=== PATIENT | female | born 1985 | race Caucasian/White ===

== ENCOUNTER 2017-01-01 13:37 | Emergency (ER) | payer MEDICAID ==
[2017-01-01 13:48] VITALS: BP 137/75
[2017-01-01] MEDS ORDERED: Ondansetron ODT TAB* 4 MG PO ONE (14:20)
--- NOTE | 2017-01-01 14:26 | UC ---
Throat Pain/Nasal Omid HPI - HPI Summary HPI Summary: Vomiting and diarrhea 4-5 times per day each since yesterday, also hot flashes, ST, and weakness. Needs note to stay home from work, also is out of zofran. - History of Current Complaint Chief Complaint: UCRespiratory Stated Complaint: THROAT PAIN Time Seen by Provider: 01/01/17 14:00 Hx Obtained From: Patient Hx Last Menstrual Period: does not get - control ?: No Onset/Duration: Gradual Onset, Lasting Days Severity: Moderate Cough: None Associated Signs & Symptoms: Positive: Vomiting. Negative: Sinus Discomfort, Nasal Discharge, Fever - Allergies/Home Medications Allergies/Adverse Reactions: Allergies Allergy/AdvReac Type Severity Reaction Status Date / Time Penicillins Allergy Severe Anaphylatic Verified 01/01/17 13:49 Shock PMH/Surg Hx/FS Hx/Imm Hx Previously Healthy: Yes Other History Of: Negative For: Anticoagulant Therapy - Surgical History Surgical History: Yes Surgery Procedure, Year, and Place: Ectopic 11/2010 - Family History Known Family History: Positive: Other - Migraines - Social History Occupation: Employed Full-time Lives: With Family Alcohol Use: Rare Substance Use Type: Marijuana Substance Use Comment - Amount & Last Used: OCCASIONALLY Smoking Status (MU): Light Every Day Tobacco Smoker Type: Cigarettes Amount Used/How Often: 5 CIG/DAY Length of Time of Smoking/Using Tobacco: 9+ YEARS Have You Smoked in the Last Year: Yes Household Exposure Type: Cigarettes - Immunization History Most Recent Influenza Vaccination: unknown Most Recent Tetanus Shot: unknown Most Recent Pneumonia Vaccination: none...n/a Review of Systems Constitutional: Chills, Fatigue Skin: Negative Eyes: Negative ENT: Sore Throat Respiratory: Negative Cardiovascular: Negative Gastrointestinal: Vomiting, Diarrhea Genitourinary: Negative Motor: Negative Neurovascular: Negative Musculoskeletal: Negative Neurological: Negative Psychological: Negative All Other Systems Reviewed And Are Negative: Yes Physical Exam Triage Information Reviewed: Yes Appearance: No Pain Distress, Obese Vital Signs: Initial Vital Signs Temp 99.0 F 01/01/17 13:43 Pulse 84 01/01/17 13:43 Resp 20 01/01/17 13:43 BP 137/75 01/01/17 13:43 Pulse Ox 100 01/01/17 13:43 Vital Signs Reviewed: Yes Eye Exam: Normal, Other - PERRL Eyes: Positive: Conjunctiva Clear ENT: Positive: Hearing grossly normal, Pharynx normal, Tonsillar swelling Dental Exam: Normal Neck exam: Normal Neck: Positive: Supple, Nontender, No Lymphadenopathy Respiratory Exam: Normal Respiratory: Positive: Chest non-tender, Lungs clear, Normal breath sounds, No respiratory distress, No accessory muscle use Cardiovascular Exam: Normal Cardiovascular: Positive: RRR, No Murmur Abdomen Description: Positive: Soft. Negative: CVA Tenderness (R), CVA Tenderness (L) Musculoskeletal Exam: Normal Neurological Exam: Normal Neurological: Positive: Alert Psychological Exam: Normal Skin Exam: Normal Throat Pain/Nasal Course/Dx - Differential Dx/Diagnosis Provider Diagnoses: acute gastroenteritis. elevated blood pressure due to pain Discharge - Discharge Plan Condition: Stable Disposition: HOME Prescriptions: Ondansetron HCl [Zofran 4 MG TAB] 4 mg PO QID #10 tab Patient Education Materials: Gastroenteritis (ED) Forms: *Work Release Referrals: No Guzman MD [Primary Care Provider] - Additional Instructions: Come back here if you are not feeling much better by .
== END 2017-01-01 14:35 | disposition home or self-care (01) ==
LOC: UCEAST 13:37
DX: K52.9 Noninfective gastroenteritis and colitis, unspecified (principal); R03.0 Elevated blood-pressure reading, without diagnosis of hypertension; F17.210 Nicotine dependence, cigarettes, uncomplicated
CPT/HCPCS: 87651; 99212; A9270-GY; G0463

== ENCOUNTER 2017-04-12 14:32 | Emergency (ER) | payer SELFPAY ==
[2017-04-12 15:01] VITALS: BP 120/58
[2017-04-12] MEDS ORDERED: Ondansetron ODT TAB* 4 MG PO ONE (15:35)
--- NOTE | 2017-04-12 16:35 | UC ---
FLU HPI - HPI Summary HPI Summary: THREE DAYS OF FATIGUE SORE THROAT, N/V, FEVER. FEELING BETTER TODAY THAN YESTERDAY. 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 Hx Last Menstrual Period: 03/29/17 Onset/Duration: Sudden Onset, Lasting Days, Still Present Severity Currently: Mild Severity Initially: Severe Associated Signs & Symptoms: Positive: Fever, Myalgia, Sore Throat, Nasal Congestion, Vomiting Related Hx: Possible Flu/Infectious Exposure - Risk Factors Influenza Risk Factors: Negative - Allergy/Home Medications Allergies/Adverse Reactions: Allergies Allergy/AdvReac Type Severity Reaction Status Date / Time Penicillins Allergy Severe Anaphylatic Verified 04/12/17 14:51 Shock Home Medications: Home Medications Norgestimate-Ethinyl Estradiol [Ortho-Cyclen] 1 tab PO 04/12/17 [History] PMH/Surg Hx/FS Hx/Imm Hx Previously Healthy: Yes Other History Of: Negative For: Anticoagulant Therapy - Surgical History Surgical History: Yes Surgery Procedure, Year, and Place: Ectopic 11/2010 - Family History Known Family History: Positive: Other - Migraines Negative: Respiratory Disease - Social History Occupation: Employed Full-time Lives: With Family Alcohol Use: Rare Substance Use Type: None Substance Use Comment - Amount & Last Used: OCCASIONALLY Smoking Status (MU): Light Every Day Tobacco Smoker Type: Cigarettes Amount Used/How Often: 1-2 cigar/ day Length of Time of Smoking/Using Tobacco: 9+ YEARS Have You Smoked in the Last Year: Yes Household Exposure Type: Cigarettes Cessation Counseling: Patient Advised to Stop - Immunization History Most Recent Influenza Vaccination: 2017 Most Recent Tetanus Shot: unknown Most Recent Pneumonia Vaccination: none...n/a Review of Systems Constitutional: Fever, Fatigue Skin: Negative Eyes: Negative ENT: Sore Throat, Nasal Discharge Respiratory: Cough Cardiovascular: Negative Gastrointestinal: Vomiting, Nausea Genitourinary: Negative Motor: Negative Neurovascular: Negative Musculoskeletal: Negative Neurological: Negative Psychological: Negative Is Patient Immunocompromised?: No All Other Systems Reviewed And Are Negative: Yes Physical Exam Triage Information Reviewed: Yes Appearance: No Pain Distress, Well-Nourished, Ill-Appearing - MILDLY Vital Signs: Initial Vital Signs Temp 99.8 F 04/12/17 14:52 Pulse 84 04/12/17 14:52 Resp 14 04/12/17 14:52 BP 120/58 04/12/17 14:52 Pulse Ox 100 04/12/17 14:52 Vital Signs Reviewed: Yes Eye Exam: Normal ENT: Positive: Hearing grossly normal, Pharynx normal, TMs normal, Tonsillar swelling Dental Exam: Normal Neck exam: Normal Neck: Positive: Supple, Nontender, No Lymphadenopathy Respiratory Exam: Normal Respiratory: Positive: Chest non-tender, Lungs clear, Normal breath sounds, No respiratory distress, No accessory muscle use Cardiovascular Exam: Normal Cardiovascular: Positive: RRR, No Murmur, Pulses Normal, Brisk Capillary Refill Abdominal Exam: Normal Abdomen Description: Positive: Nontender, No Organomegaly, Soft Musculoskeletal Exam: Normal Musculoskeletal: Positive: Strength Intact, ROM Intact Neurological Exam: Normal Psychological Exam: Normal Psychological: Positive: Normal Response To Family Skin Exam: Normal Flu Course/Dx - Differential Dx/Diagnosis Differential Diagnosis/HQI/PQRI: Broncholiolitis, Influenza, Upper Respiratory Infection Provider Diagnoses: VIRAL SYNDROME; TONSILLITIS; GASTROENTERITIS Discharge - Discharge Plan Condition: Stable Disposition: HOME Prescriptions: Ondansetron ODT TAB* [Zofran 4 MG Odt TAB*] 4 mg PO Q8H PRN #12 tab.odt PRN Reason: Vomiting Patient Education Materials: Acute Nausea and Vomiting (ED), Viral Syndrome (ED ) Forms: *Work Release Referrals: No Guzman MD [Primary Care Provider] -
== END 2017-04-12 16:20 | disposition home or self-care (01) ==
LOC: UCEAST 14:32
DX: J03.90 Acute tonsillitis, unspecified (principal); F17.210 Nicotine dependence, cigarettes, uncomplicated; Z88.0 Allergy status to penicillin; B34.9 Viral infection, unspecified; K52.9 Noninfective gastroenteritis and colitis, unspecified
CPT/HCPCS: 81003; 84702; 87502; 87651; 99212; A9270-GY; G0463

== ENCOUNTER 2017-07-15 16:57 | Emergency (ER) | payer MEDICAID ==
[2017-07-15 18:01] VITALS: BP 128/76
[2017-07-15] MEDS ORDERED: Ondansetron ODT TAB* 4 MG PO ONE (18:27)
--- NOTE | 2017-07-15 18:35 | UC ---
Violeta Molina Julia, scribed for Tripp Gross MD on 07/15/17 at 1824 . General HPI - HPI Summary HPI Summary: This patient is a 31 year old F presenting to [facility] with a chief complaint of N/V/D since yesterday at 6:00am. Patient reports persistent vomiting, watery diarrhea 2-3x day, body aches, weakness, and dizziness. - History of Current Complaint Chief Complaint: UCGeneralIllness Stated Complaint: VOMITING,COUGH,FEVER Time Seen by Provider: 07/15/17 18:18 Hx Obtained From: Patient Hx Last Menstrual Period: 06/25/2017 Onset/Duration: Sudden Onset, Lasting Days Pain Location at: generalized body Character: aches - Allergy/Home Medications Allergies/Adverse Reactions: Allergies Allergy/AdvReac Type Severity Reaction Status Date / Time Penicillins Allergy Severe Anaphylatic Verified 04/12/17 14:51 Shock PMH/Surg Hx/FS Hx/Imm Hx Other GI/ History: Ectopic Other History Of: Negative For: Anticoagulant Therapy - Surgical History Surgical History: Yes Surgery Procedure, Year, and Place: Ectopic 11/2010 - Family History Known Family History: Positive: Other - Migraines Negative: Respiratory Disease - Social History Occupation: Employed Full-time - cook Alcohol Use: Rare Substance Use Type: None Substance Use Comment - Amount & Last Used: OCCASIONALLY Smoking Status (MU): Light Every Day Tobacco Smoker Type: Cigarettes Amount Used/How Often: 1-2 cigar/ day Length of Time of Smoking/Using Tobacco: 9+ YEARS Have You Smoked in the Last Year: Yes Household Exposure Type: Cigarettes - Immunization History Most Recent Influenza Vaccination: 2017 Most Recent Tetanus Shot: unknown Most Recent Pneumonia Vaccination: none...n/a Review of Systems Constitutional: Other - body aches, weakness, dizziness Gastrointestinal: Negative, Vomiting, Diarrhea All Other Systems Reviewed And Are Negative: Yes Physical Exam Triage Information Reviewed: Yes Vital Signs: Initial Vital Signs Temp 98.7 F 07/15/17 17:56 Pulse 99 07/15/17 17:56 Resp 18 07/15/17 17:56 BP 128/76 07/15/17 17:56 Pulse Ox 99 07/15/17 17:56 Vital Signs Reviewed: Yes ENT: Positive: Pharynx normal. Negative: Nasal congestion, Nasal drainage Neck: Positive: Nontender Respiratory: Positive: Lungs clear, Normal breath sounds, No respiratory distress Cardiovascular: Positive: RRR, No Murmur Abdomen Description: Positive: Nontender. Negative: Distended Musculoskeletal: Positive: Strength Intact, ROM Intact Neurological: Positive: Alert, Muscle Tone Normal Psychological: Positive: Age Appropriate Behavior Skin Exam: Normal Course/Dx - Course Course Of Treatment: 31 y/o patient presents with presistent n/v/d, weakness, and body aches. - Differential Dx - Multi-Symptom Provider Diagnoses: gastroenteritis Discharge - Discharge Plan Condition: Good Disposition: HOME Prescriptions: Ondansetron TAB* [Zofran 4 MG Tab*] 8 mg PO Q6H PRN #10 tab PRN Reason: Nausea Patient Education Materials: Gastroenteritis (ED) Forms: *Work Release Referrals: No Guzman MD [Primary Care Provider] - 3 Days The documentation as recorded by the Violeta robledo Julia accurately reflects the service I personally performed and the decisions made by Renato adams Walter, MD.
== END 2017-07-15 18:51 | disposition home or self-care (01) ==
LOC: UCEAST 16:57
DX: K52.9 Noninfective gastroenteritis and colitis, unspecified (principal); Z72.0 Tobacco use; Z77.22 Contact with and (suspected) exposure to environmental tobacco smoke (acute) (chronic)
CPT/HCPCS: 99212; A9270-GY; G0463

== ENCOUNTER 2017-08-09 17:58 | Emergency (ER) | payer MEDICAID ==
[2017-08-09] MEDS ORDERED: Morphine INJ* 4 MG/ML 1 ML CARPUJECT IV PRN (18:19)
[2017-08-09] MEDS ORDERED: Metoclopramide IV* 5 MG/ML 2 ML VIAL IV SLOW PU ONE (18:19)
[2017-08-09] MEDS ORDERED: NS 0.9% 1000 ML* 1,000 ML IV ONE (18:20)
[2017-08-09] MEDS ORDERED: Morphine INJ* 2 MG/ML 1 ML CARPUJECT ONE ×2 (18:28)
[2017-08-09 18:33] LABS: ABS Basophils 0.1 10^3/ul (0-0.2); ABS Eosinophils 0.1 10^3/ul (0-0.6); ABS Monocytes 0.8 10^3/ul (0-0.8); ABS Neutrophils 6.4 10^3/ul (1.5-7.7); ABS Nucleated RBC 0 10^3/ul; Eosinophil % 0.8 % (0-6); Hematocrit 38 % (35-47); Hemoglobin 13.1 g/dl (12.0-16.0); Lymphocyte % 28.6 % (25-47); Mean Corpuscular HGB Conc 34 g/dl (31-36); Mean Corpuscular Hemoglobin 31 pg (27-31); Mean Corpuscular Volume 90 fL (80-97); Mean Platelet Volume 9 um3 (7.4-10.4); Nucleated Red Blood Cells % 0; Platelet Count 234 10^3/ul (150-450); Red Blood Count 4.23 10^6/ul (4.0-5.4); Red Cell Distribution Width 13 % (10.5-15); White Blood Count 10.4 10^3/ul (3.5-10.8)
--- NOTE | 2017-08-09 18:40 | ED ---
GI/ HPI - HPI Summary HPI Summary: 31-year-old who presents with pelvic pain and left-sided abdominal pain for the past 2 days. She states this feels similar to when she had an ectopic. She states it it cramp like. She states she has had a positive home although has not seen no doctor about it. She is unsure how weeks since her last period but was sometime in May. She admits to nausea. She denies any fevers. She denies any vaginal bleeding. She denies pain with urination or hematuria. She denies any diarrhea or constipation. She only had surgery for a previous ectopic 5 years ago here by dr johnson. She is A+. - History of Current Complaint Chief Complaint: EDAbdPain Time Seen by Provider: 08/09/17 18:15 Stated Complaint: PELVIC PAIN Hx Last Menstrual Period: 06/25/2017 Pain Intensity: 10 - Allergy/Home Medications Allergies/Adverse Reactions: Allergies Allergy/AdvReac Type Severity Reaction Status Date / Time Penicillins Allergy Severe Anaphylatic Verified 08/09/17 18:25 Shock PMH/Surg Hx/FS Hx/Imm Hx Endocrine/Hematology History: Denies: Hx Anticoagulant Therapy, Hx Diabetes, Hx Thyroid Disease Cardiovascular History: Denies: Hx Hypertension Respiratory History: Denies: Hx Asthma, Hx Chronic Obstructive Pulmonary Disease (COPD) GI History: Denies: Hx Ulcer Neurological History: Reports: Hx Migraine - Suspected Psychiatric History: Denies: Hx Substance Abuse - Cancer History Cancer Type, Location and Year: hx of etopic - Surgical History Surgery Procedure, Year, and Place: Ectopic 11/2010 - Immunization History Date of Tetanus Vaccine: Unknown Infectious Disease History: No Infectious Disease History: Denies: Hx Clostridium Difficile, Hx Hepatitis, Hx Human Immunodeficiency Virus (HIV), Hx of Known/Suspected MRSA, Hx Shingles, Hx Tuberculosis, Hx Known/ Suspected VRE, Hx Known/Suspected VRSA, History Other Infectious Disease, Traveled Outside the [place] in Last 30 Days - Family History Known Family History: Positive: Other - Migraines Negative: Respiratory Disease - Social History Alcohol Use: Rare Substance Use Type: Reports: None Substance Use Comment - Amount & Last Used: OCCASIONALLY Smoking Status (MU): Light Every Day Tobacco Smoker Type: Cigarettes Amount Used/How Often: 1-2 cigar/ day Length of Time of Smoking/Using Tobacco: 9+ YEARS Have You Smoked in the Last Year: Yes Review of Systems Negative: Fever Negative: Chest Pain Negative: Shortness Of Breath Negative: Abdominal Pain All Other Systems Reviewed And Are Negative: Yes Physical Exam Triage Information Reviewed: Yes Vital Signs On Initial Exam: Initial Vitals Temp Pulse Resp BP Pulse Ox 98.7 F 90 22 154/75 99 08/09/17 18:11 08/09/17 18:11 08/09/17 18:11 08/09/17 18:11 08/09/17 18:11 Vital Signs Reviewed: Yes Appearance: Positive: Well-Appearing Skin: Positive: Warm, Dry Head/Face: Positive: Normal Head/Face Inspection Eyes: Positive: Normal, EOMI, FABI, Conjunctiva Clear ENT: Positive: Normal ENT inspection, Pharyngeal erythema, TMs normal Neck: Positive: Supple, Nontender, No Lymphadenopathy Respiratory/Lung Sounds: Positive: Clear to Auscultation, Breath Sounds Present Cardiovascular: Positive: Normal, RRR Abdomen Description: Positive: Soft, Other: - tenderness pelvic and LLQ. Negative: CVA Tenderness (R), CVA Tenderness (L) Bowel Sounds: Positive: Present Musculoskeletal: Positive: Normal Neurological: Positive: Normal Psychiatric: Positive: Normal Diagnostics - Vital Signs Vital Signs Temp Pulse Resp BP Pulse Ox 08/09/17 18:32 15 08/09/17 18:19 103 99 08/09/17 18:11 98.7 F 90 22 154/75 99 - Laboratory Lab Results: Lab Results 08/09/17 Range/Units 18:25 WBC 10.4 (3.5-10.8) 10^3/ul RBC 4.23 (4.0-5.4) 10^6/ul Hgb 13.1 (12.0-16.0) g/dl Hct 38 (35-47) % MCV 90 (80-97) fL MCH 31 (27-31) pg MCHC 34 (31-36) g/dl RDW 13 (10.5-15) % Plt Count 234 (150-450) 10^3/ul MPV 9 (7.4-10.4) um3 Neut % (Auto) 62.2 (38-83) % Lymph % (Auto) 28.6 (25-47) % Evans % (Auto) 7.6 (1-9) % Eos % (Auto) 0.8 (0-6) % Baso % (Auto) 0.8 (0-2) % Absolute Neuts (auto) 6.4 (1.5-7.7) 10^3/ul Absolute Lymphs (auto) 3.0 (1.0-4.8) 10^3/ul Absolute Monos (auto) 0.8 (0-0.8) 10^3/ul Absolute Eos (auto) 0.1 (0-0.6) 10^3/ul Absolute Basos (auto) 0.1 (0-0.2) 10^3/ul Absolute Nucleated RBC 0 10^3/ul Nucleated RBC % 0 Result Diagrams: 08/09/17 18:25 08/09/17 18:25 Lab Statement: Any lab studies that have been ordered have been reviewed, and results considered in the medical decision making process. - Ultrasound No standard instances Ultrasound Interpretation: Positive (See Comments) - IMPRESSION: 1. Intrauterine gestational sac without confirmation of pole. Suggest correlation with serial beta-hCGs and follow-up ultrasonography. 2. Possible dermoid cyst left ovary. Complex cyst left ovary. No evidence of ovarian torsion. 3. Small amount of free fluid in the cul-de-sac. Ultrasound Interpretation Completed By: Radiologist ASHLEY Course/Dx - Course Course Of Treatment: 31-year-old who presents with pelvic pain and left- sided abdominal pain for the past 2 days. She states this feels similar to when she had an ectopic. She states it it cramp like. She states she has had a positive home although has not seen no doctor about it. She is unsure how weeks since her last period but was sometime in May. She admits to nausea. She denies any fevers. She denies any vaginal bleeding. She denies pain with urination or hematuria. She only had surgery for a previous ectopic 5 years ago [address] dr johnson. She is A+. on exam tenderness pelvic and LLQ. wbc normal. hcg 6436. u/s shows intrauterine gestation sace without confirmation of pole. complex left ovarian cyst. discussed results with patient and patient states that this is exact how her ecoptic presented. she had normal u/s without sac and mass near left ovary and that two weeks later started to bleed and was found to be ectopic. spoke with dr thompson can not rule out ectopic but unlikely said needs to follow up toradol saturday for repeat hcg and to return if symptoms get worst. dr murdock states could be ectopic with intrauterine and just follow up with u/s. patient understand and agrees with plan - Diagnoses Differential Diagnoses - Female: Ectopic , Ovarian Cyst, Ovarian Torsion, Other - intrauterine Provider Diagnoses: Intrauterine , Abdominal pain, Left ovarian cyst Discharge - Discharge Plan Condition: Good Disposition: HOME Prescriptions: HYDROcodone/ACETAMIN 5-325 MG* [Gilbert 5-325 TAB*] 1 tab PO Q6H PRN #16 tab MDD 4 PRN Reason: Pain Patient Education Materials: Ovarian Cyst (ED) Referrals: No Guzman MD [Primary Care Provider] - Additional Instructions: Follow up with obgyn on saturday for repeat HCG level Take Tylenol for pain, use narcotic for break through pain Place heat on area Return to ED if anything changes
[2017-08-09 18:49] LABS: EGFR Non-African American 102.3 (>60)
[2017-08-09 18:56] LABS: INR 1.07 (0.77-1.02)
[2017-08-09] MEDS ORDERED: Morphine INJ* 2 MG/ML 1 ML CARPUJECT IV ONE (19:12)
--- NOTE | 2017-08-09 20:12 | RAD ---
INDICATION: . Left-sided pain. History of ectopic COMPARISON: None TECHNIQUE: Transvaginal scans were performed for the purposes of early evaluation. FINDINGS: There is an intrauterine gestational sac. Sac size measurements corresponds to 5 week 6 day gestation. No Pole is confirmed. There is a small amount of free fluid in the cul-de-sac. The ovaries are identified as discrete structures. The right ovary measures 2.3 x 1.6 x 2.5 cm and the left ovary 3.0 x 2.9 x 2.5 cm. There is a nonshadowing echogenic structure in the left adnexa measuring 2.4 cm. This has no intrinsic flow on Doppler interrogation. This could represent a dermoid cyst or be extrinsic to the left ovary There is a complex cyst in the left ovary measuring 2.5 cm. There is flow to each ovary on Doppler interrogation. IMPRESSION: 1. Intrauterine gestational sac without confirmation of pole. Suggest correlation with serial beta-hCGs and follow-up ultrasonography. 2. Possible dermoid cyst left ovary. Complex cyst left ovary. No evidence of ovarian torsion. 3. Small amount of free fluid in the cul-de-sac.
[2017-08-09 21:19] VITALS: BP 125/64
== END 2017-08-09 21:17 | disposition home or self-care (01) ==
LOC: ED 17:58
DX: O34.80 Maternal care for other abnormalities of pelvic organs, unspecified trimester (principal); N83.202 Unspecified ovarian cyst, left side; Z88.0 Allergy status to penicillin; O99.330 Smoking (tobacco) complicating pregnancy, unspecified trimester; F17.210 Nicotine dependence, cigarettes, uncomplicated
CPT/HCPCS: 36415; 76817; 80053; 83690; 84702; 85025; 85610; 85730; 86141; 96360; 96374; 96375; 96376; 99284; J2270; J2765

== ENCOUNTER 2018-06-12 17:35 | Emergency (ER) | payer OTHER ==
[2018-06-12 17:49] VITALS: BP 149/76
--- NOTE | 2018-06-12 18:00 | UC ---
Throat Pain/Nasal Omid HPI - HPI Summary HPI Summary: 2 days of n/v, fever, sore throat, cough, R rib pain and vomiting. no sick contacts. - History of Current Complaint Chief Complaint: UCGeneralIllness Stated Complaint: THROAT PAIN Time Seen by Provider: 06/12/18 17:55 Hx Obtained From: Patient Hx Last Menstrual Period: TODAY ?: No - nexplanon Pain Intensity: 5 Pain Scale Used: 0-10 Numeric - Allergies/Home Medications Allergies/Adverse Reactions: Allergies Allergy/AdvReac Type Severity Reaction Status Date / Time Penicillins Allergy Severe Anaphylatic Verified 08/09/17 18:25 Shock PMH/Surg Hx/FS Hx/Imm Hx Previously Healthy: Yes Other History Of: Negative For: Anticoagulant Therapy - Surgical History Surgical History: Yes Surgery Procedure, Year, and Place: Ectopic 11/2010 - Family History Known Family History: Positive: Other - Migraines Negative: Respiratory Disease - Social History Alcohol Use: Rare Substance Use Type: None Substance Use Comment - Amount & Last Used: OCCASIONALLY Smoking Status (MU): Light Every Day Tobacco Smoker Type: Cigarettes Amount Used/How Often: 1-2 cigar/ day Length of Time of Smoking/Using Tobacco: 9+ YEARS Have You Smoked in the Last Year: Yes Household Exposure Type: Cigarettes - Immunization History Most Recent Influenza Vaccination: 2017 Most Recent Tetanus Shot: unknown Most Recent Pneumonia Vaccination: none...n/a Review of Systems All Other Systems Reviewed And Are Negative: Yes Constitutional: Positive: Fever, Chills, Fatigue Skin: Positive: Negative Eyes: Positive: Negative ENT: Positive: Sore Throat, Nasal Discharge, Sinus Congestion Respiratory: Positive: Cough, Other - R rib pain Gastrointestinal: Positive: Vomiting, Diarrhea, Nausea Genitourinary: Positive: Negative Neurological: Positive: Headache Physical Exam Triage Information Reviewed: Yes Appearance: Well-Appearing Vital Signs: Initial Vital Signs Temp 98.8 F 06/12/18 17:43 Pulse 97 06/12/18 17:43 Resp 16 06/12/18 17:43 BP 149/76 06/12/18 17:43 Pulse Ox 98 06/12/18 17:43 Eyes: Positive: Conjunctiva Clear ENT: Positive: Pharyngeal erythema, TMs normal, Uvula midline. Negative: Sinus tenderness Neck: Positive: Supple, No Lymphadenopathy Respiratory: Positive: No respiratory distress, No accessory muscle use, Rhonchi Cardiovascular Exam: Normal Abdominal Exam: Normal Neurological: Positive: Alert Skin Exam: Normal Throat Pain/Nasal Course/Dx - Course Assessment/Plan: 2 day hx of flu-like symptoms. vitals good. rapid strep neg, flu neg, urine hcg neg. CXR: essentially normal but will await final read. viral etiology. rib pain is likely from muscle strain from coughing. advised to return if she develops worsening symptoms but reassured her this was self- limiting. of note she asked for opiates and i declined. - Differential Dx/Diagnosis Differential Diagnosis/HQI/PQRI: Influenza, Tonsillitis, URI Provider Diagnosis: Flu-like symptoms Discharge - Sign-Out/Discharge Documenting (check all that apply): Patient Departure All imaging exams completed and their final reports reviewed: No Studies - Discharge Plan Condition: Good Disposition: HOME Patient Education Materials: Influenza (ED) Forms: *Work Release Referrals: No Guzman MD [Primary Care Provider] - Additional Instructions: You have a flu like illness but you do not have actual Influenza. Please keep hydrated and REST - Billing Disposition and Condition Condition: GOOD Disposition: Home
== END 2018-06-12 19:20 | disposition home or self-care (01) ==
LOC: UCEAST 17:35
DX: R11.2 Nausea with vomiting, unspecified (principal); R50.9 Fever, unspecified; J02.9 Acute pharyngitis, unspecified; R05 Cough; R07.81 Pleurodynia; F17.210 Nicotine dependence, cigarettes, uncomplicated; Z88.0 Allergy status to penicillin
CPT/HCPCS: 71046; 84702; 87651; 99211; G0463

== ENCOUNTER 2018-08-05 08:58 | Emergency (ER) | payer OTHER ==
--- NOTE | 2018-08-05 10:32 | UC ---
General HPI - HPI Summary HPI Summary: Pleasant 32 yo female c/o ongoing R flank and back pain for the last week. No freq / urg / hematuria. Menses irregular. Has been working out quite a bit over the last 2 weeks, more than usual, not sure if she pulled a muscle. No fever / chills. No abd pain. No sob /cp / palpitations. Does not think she is diabetic, + fam hx dm. No melena / brbpr. Reported to RN at triage sometimes dizzy. - History of Current Complaint Chief Complaint: UCBackPain Stated Complaint: POSS KIDNEY PAIN Time Seen by Provider: 08/05/18 10:30 Hx Obtained From: Patient Hx Last Menstrual Period: 08/05/18 Pain Intensity: 10 - Allergy/Home Medications Allergies/Adverse Reactions: Allergies Allergy/AdvReac Type Severity Reaction Status Date / Time Penicillins Allergy Severe Anaphylatic Verified 08/05/18 09:25 Shock Home Medications: Home Medications Cyclobenzaprine (NF) [Cyclobenzaprine 5 MG (NF)] 2 tab PO Q4HR PRN 08/05/18 [ History Confirmed 08/05/18] Implanon 1 unit SUBCUT ONCE 08/05/18 [History Confirmed 08/05/18] Naproxen Sodium [Aleve] 880 mg PO ONCE PRN 08/05/18 [History Confirmed 08/05/18] PMH/Surg Hx/FS Hx/Imm Hx Previously Healthy: Yes Other History Of: Negative For: Anticoagulant Therapy - Surgical History Surgical History: Yes Surgery Procedure, Year, and Place: Ectopic 11/2010 - Family History Known Family History: Positive: Other - Migraines Negative: Respiratory Disease - Social History Alcohol Use: Rare Substance Use Type: Marijuana Substance Use Comment - Amount & Last Used: OCCASIONALLY Smoking Status (MU): Former Smoker Type: Cigarettes Amount Used/How Often: 1-2 cigar/ day Length of Time of Smoking/Using Tobacco: 9+ YEARS Have You Smoked in the Last Year: Yes Household Exposure Type: Cigarettes - Immunization History Most Recent Influenza Vaccination: 2017 Most Recent Tetanus Shot: unknown Most Recent Pneumonia Vaccination: none...n/a Review of Systems All Other Systems Reviewed And Are Negative: Yes Constitutional: Positive: Negative Skin: Positive: Negative Eyes: Positive: Negative ENT: Positive: Negative Respiratory: Positive: Negative Cardiovascular: Positive: Negative Gastrointestinal: Positive: Other - see hpi Genitourinary: Positive: Other - see hpi Motor: Positive: Negative - see hpi Neurovascular: Positive: Negative Musculoskeletal: Positive: Negative Neurological: Positive: Negative Psychological: Positive: Negative Is Patient Immunocompromised?: No Physical Exam Triage Information Reviewed: Yes Appearance: Well-Appearing, Well-Nourished Vital Signs: Initial Vital Signs Temp 98.1 F 08/05/18 09:19 Pulse 81 08/05/18 09:19 Resp 18 08/05/18 09:19 BP 127/64 08/05/18 09:19 Pulse Ox 100 08/05/18 09:19 Vital Signs Reviewed: Yes Eye Exam: Normal ENT Exam: Normal Neck exam: Normal Respiratory Exam: Normal Respiratory: Positive: Chest non-tender, Lungs clear, Normal breath sounds, No respiratory distress, No accessory muscle use Cardiovascular Exam: Normal Cardiovascular: Positive: RRR, No Murmur, Pulses Normal, Brisk Capillary Refill Abdominal Exam: Other - soft, nondistended no ant abd tenderness appreciated to examination Musculoskeletal Exam: Other - Tender R lateral back, upper back, but pt reports that the pain has been lower - mid back. Musculoskeletal: Positive: Strength Intact Neurological Exam: Normal - grossly nonfocal Psychological Exam: Normal Skin Exam: Normal Course/Dx - Course Course Of Treatment: Reviewed ct report with pt. Reviewed urine dip. Cx sent. She is aware of the need to f/u PCP. She is unable to stay for further w/u, needs to go pick up truck driver her daughter from school. She will f/u pcp. Does want blood work, requests additional hiv testing. Questions as posed answered to the best of my ability. Aware to go to the ED for worse or new problems. - Diagnoses Provider Diagnosis: Flank pain, Hematuria, Hepatomegaly Discharge - Sign-Out/Discharge Documenting (check all that apply): Patient Departure All imaging exams completed and their final reports reviewed: Yes - Discharge Plan Condition: Stable Disposition: HOME Prescriptions: DOXYcycline CAP(*) [DOXYcycline 100MG CAP(*)] 100 mg PO BID #14 cap metroNIDAZOLE VAGINAL 0.75%* 1 applic VAGINAL BEDTIME 7 Days #1 tube Patient Education Materials: Hematuria (ED), Flank Pain (ED) Referrals: No Guzman MD [Primary Care Provider] - Additional Instructions: Drink plenty of water. Follow up with Dr. Santana within 1 week. Go to the Emergency Department for any worse or new problems. Urine culture has been sent to the lab. Your liver is enlarged. Blood work has been sent. - Billing Disposition and Condition Condition: STABLE Disposition: Home
[2018-08-05 11:33] VITALS: BP 133/59
[2018-08-05 16:09] LABS: ABS Basophils 0 10^3/ul (0-0.2); ABS Eosinophils 0.1 10^3/ul (0-0.6); ABS Lymphocytes 2.1 10^3/ul (1.0-4.8); ABS Monocytes 0.6 10^3/ul (0-0.8); ABS Neutrophils 4.5 10^3/ul (1.5-7.7); ABS Nucleated RBC 0 10^3/ul; Eosinophil % 0.9 %; Hematocrit 40 % (35-47); Hemoglobin 13.4 g/dl (12.0-16.0); Lymphocyte % 29.4 %; Mean Corpuscular HGB Conc 33 g/dl (31-36); Mean Corpuscular Hemoglobin 30 pg (27-31); Mean Corpuscular Volume 90 fL (80-97); Mean Platelet Volume 9.6 fL (7.4-10.4); Nucleated Red Blood Cells % 0.1; Platelet Count 244 10^3/ul (150-450); Red Blood Count 4.46 10^6/ul (4.00-5.40); Red Cell Distribution Width 13 % (10.5-15); White Blood Count 7.3 10^3/ul (3.5-10.8)
[2018-08-05 16:50] LABS: Albumin 4.2 g/dL (3.2-5.2); Calcium 9.4 mg/dL (8.6-10.3); Potassium 4.3 mmol/L (3.5-5.0); Total Bilirubin 0.5 mg/dL (0.2-1.0)
[2018-08-05 16:56] LABS: Albumin/Globulin Ratio 1.3 (1-3); BUN/Creatinine Ratio 18.8 (8-20); EGFR African American 120.9 (>60); EGFR Non-African American 99.9 (>60); Globulin 3.3 g/dL (2-4); Total Protein 7.5 g/dL (6.4-8.9)
[2018-08-06 19:35] LABS: Hepatitis B Surface Antigen Nonreactive (Nonreactive)
[2018-08-06 19:58] LABS: Hepatitis C Antibody Nonreactive (Nonreactive)
[2018-08-07 14:35] LABS: Hepatitis B Surface AB Not Immune (Immune)
== END 2018-08-05 12:10 | disposition home or self-care (01) ==
LOC: UCEAST 08:58
DX: R10.9 Unspecified abdominal pain (principal); R31.9 Hematuria, unspecified; R16.0 Hepatomegaly, not elsewhere classified; Z87.891 Personal history of nicotine dependence
CPT/HCPCS: 36415; 74176; 80053; 81003; 84702; 85025; 86703; 86706; 86708; 86803; 87086; 87340; 99212; G0463

== ENCOUNTER 2019-06-09 14:16 | Emergency (ER) | payer OTHER ==
--- OUTSIDE RECORDS SUMMARY | 2019-06-09 14:23 | XMS REPORT | Summary of Care ---
:1985 Author Organization [facility] Address [address] [place] [address] Care Team Providers Name Role Phone Unavailable Primary Care Provider Unavailable Reason for Visit Reason Comments Establish Care establish care Flank Pain both sides painful, mostly left, cant sit, always thirsty, afebrile Encounter Details Date Type Department Care Team Description 04/21/2019 Office Visit [facility] Danielito Kendrick, Left-sided thoracic back pain, unspecified chronicity (Primary Dx); Practice [address] [facility] Pain of left scapula; [address] [place] [address] Polyuria; [place] [address] Marijuana user; [phone] Malaise and fatigue Allergies Active Allergy Reactions Severity Noted Date Comments Penicillin G Potassium GI Reaction 07/17/2007 Rash Penicillins Anaphylaxis High 06/26/2012 documented as of this encounter (statuses as of 04/21/2019) Medications Medication Sig Dispensed Refills Start Date End Date Status Norgestimate-Ethiny Take 1 Tab 28 Tab 5 08/29/2012 Discontinued l Estradiol by mouth 9 (ORTHO-CYCLEN, 28,) DAILY. 0.25-35 MG-MCG Oral TabIndications: Other general counseling and advice for contraceptive management Omeprazole delayed Take 20 mg 30 Cap 0 08/29/2012 Discontinued rel cap 20 MG Oral by mouth 9 (Therapy CAPSULE DELAYED DAILY. Completed) RELEASE documented as of this encounter (statuses as of 04/21/2019) Active Problems Problem Noted Date Tobacco user 08/29/2012 Obesity documented as of this encounter (statuses as of 04/21/2019) Immunizations Name Administration Dates Next Due Tuberculin Skin Test 09/24/2006 documented as of this encounter Social History Tobacco Use Types Packs/Day Years Used Date Former Smoker 0 Smokeless Tobacco: Never Used Alcohol Use Drinks/Week oz/Week Comments No Sex Assigned at Date Recorded Not on file Job Start Date Occupation Industry Not on file Not on file Not on file Travel History Travel Start Travel End No recent travel history available. documented as of this encounter Last Filed Vital Signs Vital Sign Reading Time Taken Comments Blood Pressure 144/72 04/21/2019 2:36 PM EDT Pulse 102 04/21/2019 2:36 PM EDT Temperature 36.4 04/21/2019 2:36 PM EDT C (97.6 F) Respiratory Rate 20 04/21/2019 2:36 PM EDT Oxygen Saturation 99% 04/21/2019 2:36 PM EDT Inhaled Oxygen Concentration - - Weight 114.1 kg (251 lb 8 oz) 04/21/2019 2:36 PM EDT Height 170.2 cm (5' 7") 04/21/2019 2:36 PM EDT Body Mass Index 39.39 04/21/2019 2:36 PM EDT documented in this encounter Progress Notes Danielito Kendrick, DO - 04/21/2019 2:20 PM EDT PATIENT: Amanda Moulton : 1985 DATE OF SERVICE: 04/21/2019 CHIEF COMPLAINT: Chief Complaint Patient presents with Establish Care establish care Flank Pain both sides painful, mostly left, cant sit, always thirsty, afebrile Subjective HISTORY OF PRESENT ILLNESS: Amanda Moulton is a 33-y.o. female. HPI Did no show for new pcp appointment and will re establish with Dr Albert Monet concerns for me today 2 months of left thoracic and left scapula pain: No triggers or falls All the time When busy at work forgets Otherwise keeps bothering her No bowel or urine incontinence No leg or arm weakness No fevers Also complains of polyuria for few months Has diabetes in family No dysuria Fingerstick today: 101 Past Medical History: Diagnosis Date Ectopic Obesity PPD+ BCG Tobacco user Family History Problem Relation Age of Onset Breast Cancer Unknown aunt No current outpatient medications on file. No current facility-administered medications for this visit. Allergies Allergen Reactions Penicillins Anaphylaxis Penicillin [Penicillin G Potassium] GI Reaction Rash Social History Socioeconomic History Marital status: Single Spouse name: Not on file Number of children: Not on file Years of education: Not on file Highest education level: Not on file Occupational History Not on file Social Needs Financial resource strain: Not on file Food insecurity: Worry: Not on file Inability: Not on file Transportation needs: Medical: Not on file Non-medical: Not on file Tobacco Use Smoking status: Former Smoker Packs/day: 0.00 Smokeless tobacco: Never Used Substance and Sexual Activity Alcohol use: No Drug use: Yes Types: Marijuana Sexual activity: Not on file Lifestyle Physical activity: Days per week: Not on file Minutes per session: Not on file Stress: Not on file Relationships Social connections: Talks on phone: Not on file Gets together: Not on file Attends yazidism service: Not on file Active member of club or organization: Not on file Attends meetings of clubs or organizations: Not on file Relationship status: Not on file Intimate partner violence: Fear of current or ex partner: Not on file Emotionally abused: Not on file Physically abused: Not on file Forced sexual activity: Not on file Other Topics Concern Not on file Social History Narrative Not on file Over the last 2 weeks, have you been feeling down, depressed, anxious, or hopeless?: 0 Over the past 2 weeks, have you felt little interest or pleasure in doing things ?: 0 REVIEW OF SYSTEMS: Review of Systems Constitutional: Negative for fever. Cardiovascular: Negative for chest pain. Gastrointestinal: Negative for abdominal pain. Neurological: Negative for dizziness. Objective PHYSICAL EXAM: VITALS: BP 144/72 (BP Location: Left arm, Patient Position: Sitting) | Pulse 102 | Temp 97.6 F (36.4 C) (Tympanic) | Resp 20 | Ht 5' 7" (1.702 m) | Wt 251 lb 8 oz (114.1 kg) | SpO2 99% | BMI 39.39 kg/m Body mass index is 39.39 kg/m. Physical Exam Constitutional: Appearance: She is obese. She is not toxic-appearing. Cardiovascular: Rate and Rhythm: Normal rate and regular rhythm. Pulmonary: Effort: Pulmonary effort is normal. Breath sounds: Normal breath sounds. Musculoskeletal: Comments: No thoracic vertebral tenderness Scapular area soft tissue tenderness Neurological: Mental Status: She is alert. ASSESSMENT / IMPRESSION: ICD-9-CM ICD-10-CM 1. Left-sided thoracic back pain, unspecified chronicity 724.1 M54.6 XR THORACIC SPINE 3 VIEWS (STANDARD) 2. Pain of left scapula 733.90 M89.8X1 XR SCAPULA COMPLETE LEFT 3. Polyuria 788.42 R35.8 GLYCOHEMOGLOBIN A1C COMPREHENSIVE METABOLIC PANEL URINALYSIS (LAB) WITH REFLEX CULTURE 4. Marijuana user 305.20 F12.90 5. Malaise and fatigue 780.79 R53.81 CBC NO DIFFERENTIAL R53.83 THYROID STIMULATING HORMONE VITAMIN D 25 HYDROXY (LEON) VITAMIN B12 / FOLATE Plan Xray thoracic spine and scapula as pain for 2 months and not improving Polyuria: finger stick glucose is ok. Check UA and a1c Author: Danielito Kendrick DO 04/21/2019 15:03 documented in this encounter Plan of Treatment Date Type Specialty Care Team Description 04/21/2019 Ancillary Procedure Radiology Pain of left scapula 04/21/2019 Ancillary Procedure Radiology Left-sided thoracic back pain, unspecified chronicity Name Type Priority Associated Diagnoses Order Schedule XR THORACIC SPINE 3 VIEWS Imaging Routine Left-Sided Thoracic Expected: (STANDARD) Back Pain, Unspecified 04/21/2019, Chronicity Expires: 04/20/2020 XR SCAPULA COMPLETE LEFT Imaging Routine Pain Of Left Scapula Expected: 04/21/2019, Expires: 04/20/2020 GLYCOHEMOGLOBIN A1C Lab Routine Polyuria Expected: 04/21/2019 (Approximate), Expires: 04/21/2020 COMPREHENSIVE METABOLIC Lab Routine Polyuria Expected: PANEL 04/21/2019 (Approximate), Expires: 04/21/2020 CBC NO DIFFERENTIAL Lab Routine Malaise and fatigue Expected: 04/21/2019 (Approximate), Expires: 04/21/2020 THYROID STIMULATING HORMONE Lab Routine Malaise and fatigue Expected: 04/21/2019 (Approximate), Expires: 04/21/2020 VITAMIN D 25 HYDROXY Lab Routine Malaise and fatigue Expected: (LEON) 04/21/2019 (Approximate), Expires: 04/21/2020 VITAMIN B12 / FOLATE Lab Routine Malaise and fatigue Expected: 04/21/2019 (Approximate), Expires: 04/21/2020 URINALYSIS (LAB) WITH Lab Routine Polyuria Expected: REFLEX CULTURE 04/21/2019 (Approximate), Expires: 10/18/2019 Health Maintenance Due Date Last Done Comments HIV SCREENING 12/19/2002 PAP SMEAR 06/26/2015 06/26/2012 INFLUENZA VACCINE (#1) 2019 DEPRESSION SCREENING 04/21/2020 04/21/2019 HPV IMMUNIZATION SERIES Aged Out No longer eligible based on patient's age to complete this topic MENINGOCOCCAL VACCINE IMM Aged Out No longer eligible based on patient's age to complete this topic PNEUMOCOCCAL 0-64 YRS Aged Out No longer eligible based on patient's age to complete this topic documented as of this encounter Results Not on filedocumented in this encounter Visit Diagnoses Diagnosis Left-sided thoracic back pain, unspecified chronicity - Primary Pain of left scapula Disorder of bone and cartilage, unspecified Polyuria Marijuana user Malaise and fatigue Other malaise and fatigue documented in this encounter
[2019-06-09 14:35] VITALS: BP 110/69
--- NOTE | 2019-06-09 14:57 | UC ---
UC General HPI - HPI Summary HPI Summary: Pleasant 33 yo female c/o L pelvic pain since yesterday. Pain is constant, but worse this afternoon. No bleeding. Specifically denies cramping. Nonpositional. LMP 04/27/19, seen yesterday by ObGyn [employer], plans to see MD this Saturday (today is Saturday). No fever / chills. No urinary sx, including no dysuria / hematuria. No back pain, but pain radiates to side. PMH sign for several pregnancies, including 1 full term 6 yrs ago, and several missed ab, termination, and possible ectopic in 2010. + ongoing n/v, thinks related. - History of Current Complaint Chief Complaint: UCAbdominalPain Stated Complaint: AND CRAMPING Time Seen by Provider: 06/09/19 14:57 Hx Obtained From: Patient Hx Last Menstrual Period: 08/05/18 Pain Intensity: 8 - Allergy/Home Medications Allergies/Adverse Reactions: Allergies Allergy/AdvReac Type Severity Reaction Status Date / Time Penicillins Allergy Severe Anaphylatic Verified 08/05/18 09:25 Shock PMH/Surg Hx/FS Hx/Imm Hx Previously Healthy: Yes - see hpi Other History Of: Negative For: Anticoagulant Therapy - Surgical History Surgical History: Yes Surgery Procedure, Year, and Place: Ectopic 11/2010 - Family History Known Family History: Positive: Other - Migraines Negative: Respiratory Disease - Social History Alcohol Use: Rare Substance Use Type: Marijuana Substance Use Comment - Amount & Last Used: OCCASIONALLY Smoking Status (MU): Former Smoker Type: Cigarettes Amount Used/How Often: 1-2 cigar/ day Length of Time of Smoking/Using Tobacco: 9+ YEARS Have You Smoked in the Last Year: Yes Household Exposure Type: Cigarettes - Immunization History Most Recent Influenza Vaccination: 2017 Most Recent Tetanus Shot: unknown Most Recent Pneumonia Vaccination: none...n/a Review of Systems All Other Systems Reviewed And Are Negative: Yes Constitutional: Positive: Negative Skin: Positive: Negative Eyes: Positive: Negative ENT: Positive: Negative Respiratory: Positive: Negative Cardiovascular: Positive: Negative Gastrointestinal: Positive: Vomiting, Nausea, Other - see hpi Genitourinary: Positive: Other - see hpi Motor: Positive: Negative Neurovascular: Positive: Negative Musculoskeletal: Positive: Negative Neurological: Positive: Negative Psychological: Positive: Negative Is Patient Immunocompromised?: No Physical Exam Triage Information Reviewed: Yes Appearance: Well-Nourished - sitting up, conversing easily. Looks a little uncomfortable but NAD. Vital Signs: Initial Vital Signs Temp 98.7 F 06/09/19 14:30 Pulse 87 06/09/19 14:30 Resp 18 06/09/19 14:30 BP 110/69 06/09/19 14:30 Pulse Ox 100 06/09/19 14:30 Vital Signs Reviewed: Yes Eye Exam: Normal ENT Exam: Normal - mm are moist. Facial expressions grossly symmetric. Neck exam: Normal Neck: Positive: Supple Respiratory Exam: Normal Respiratory: Positive: Chest non-tender, Lungs clear, Normal breath sounds, No respiratory distress, No accessory muscle use Cardiovascular Exam: Normal Cardiovascular: Positive: RRR, Pulses Normal, Brisk Capillary Refill Abdominal Exam: Other - Abd soft, without dwight hsm. No cvat. + L pelvic tenderness to pressure. + local guarding, no rebound. + bs. Musculoskeletal Exam: Normal - gait steady Neurological Exam: Normal - grossly nonfocal Psychological Exam: Normal - nad Skin Exam: Normal - nondiaphoretic. No visible or reported rash. Course/Dx - Course Course Of Treatment: I highly encouraged pt to go the the ED. She expresses understanding, and carefully considered, but reports that she has no one to bulk picker her 6 yr old child and care for her this afternoon / evening. Reviewed blood work in [employer] from yesterday, including HCG > 34k. U/s TV noted, see [facility]. Early intrauterine preg 6w0d + hb. R cyst c/w CL cyst. However, no issues noted on report re L pelvis. Reviewed urine dip, cx sent. Ms. Moulton is not able to stay past 5:15 for further w/u nor will she go to the ED (L pelvic pain etiology unclear, needs further w/u). She will consider going to the ED in the morning, caio if no better. Advised to call 911 if problems in the meantime. She keep her doctor posted as well. I called Dr. Souza 3:15, prior to results, he too recommended ED, which was relayed to Ms. Moulton. Ms. Moulton was given the opportunity to ask several insightful questions, to which I answered to the best of my ability. - Diagnoses Provider Diagnosis: Pelvic pain, , Nausea and vomiting during Discharge ED - Sign-Out/Discharge Documenting (check all that apply): Patient Departure All imaging exams completed and their final reports reviewed: Yes - Discharge Plan Condition: Guarded Disposition: HOME Patient Education Materials: Nausea and Vomiting in (ED), ( ED), Pelvic Pain in Women (ED) Referrals: Tacos Souza MD [Medical Doctor] - No Guzman MD [Primary Care Provider] - Additional Instructions: I recommend that you go to the Emergency Department because your pain is significant, and you are very nauseas. There is 1+ blood in your urine dip. This must be followed by your doctor (or emergency department). You have a urine culture in the lab. Please call your doctor tomorrow to arrange follow up as soon as possible. - Billing Disposition and Condition Condition: GUARDED Disposition: Home
== END 2019-06-09 16:45 | disposition home or self-care (01) ==
LOC: UCEAST 14:16
DX: O21.8 Other vomiting complicating pregnancy (principal); O99.89 Other specified diseases and conditions complicating pregnancy, childbirth and the puerperium; R10.2 Pelvic and perineal pain; Z88.0 Allergy status to penicillin; Z87.891 Personal history of nicotine dependence; Z3A.01 Less than 8 weeks gestation of pregnancy
CPT/HCPCS: 76817; 81003; 87086; 99212; G0463

== ENCOUNTER 2019-06-12 10:02 | Emergency (ER) | payer OTHER ==
--- NOTE | 2019-06-12 10:19 | ED ---
- HPI Summary HPI Summary: This patient is a 33 year old female presenting to [facility] with a chief complaint of left flank/LLQ pain in since 3 days ago. She went to the OBGYN office who did not have ultrasound available so she came here. She is approximately 7 weeks and states last time she felt a pain like this she had an ectopic 8 years ago. She states the pain radiates to her back and shoulder. She reports hematuria. The patient reports a Hx of kidney stones and states it did not feel like this. She rates her pain 10/[address] Souza is her OBGYN. - History of Current Complaint Chief Complaint: EDAbdPain Stated Complaint: PREG/ABD PAIN PER PT Time Seen by Provider: 06/12/19 10:05 Hx Obtained From: Patient Onset/Duration: Started Hours Ago Pain Intensity: 10 Location of Pain: Left Side - Assessment Hx Now: Yes SAB: 2 IEA: 3 Hx Hysterectomy: No - Additional Pertinent History Maternal Blood Type and Rh: A Positive - Allergies/Home Medications Allergies/Adverse Reactions: Allergies Allergy/AdvReac Type Severity Reaction Status Date / Time Penicillins Allergy Severe Anaphylatic Verified 06/12/19 10:04 Shock Home Medications: Home Medications Pnv No.95/Ferrous Fum/Folic AC [ Tablet] 1 each PO DAILY 06/12/19 [ History Confirmed 06/12/19] PMH/Surg Hx/FS Hx/Imm Hx Endocrine/Hematology History: Denies: Hx Anticoagulant Therapy, Hx Diabetes, Hx Thyroid Disease Cardiovascular History: Denies: Hx Hypertension Respiratory History: Denies: Hx Asthma, Hx Chronic Obstructive Pulmonary Disease (COPD) GI History: Denies: Hx Ulcer Neurological History: Reports: Hx Migraine - Suspected Psychiatric History: Denies: Hx Substance Abuse - Cancer History Cancer Type, Location and Year: hx of etopic - Surgical History Surgery Procedure, Year, and Place: Ectopic 11/2010 - Immunization History Date of Tetanus Vaccine: Unknown Infectious Disease History: No Infectious Disease History: Denies: Hx Clostridium Difficile, Hx Hepatitis, Hx Human Immunodeficiency Virus (HIV), Hx of Known/Suspected MRSA, Hx Shingles, Hx Tuberculosis, Hx Known/ Suspected VRE, Hx Known/Suspected VRSA, History Other Infectious Disease, Traveled Outside the [place] in Last 30 Days - Family History Known Family History: Positive: Other - Migraines Negative: Respiratory Disease - Social History Alcohol Use: Rare Substance Use Type: Reports: Marijuana Substance Use Comment - Amount & Last Used: OCCASIONALLY Hx Tobacco Use: Yes Smoking Status (MU): Former Smoker Type: Cigarettes Amount Used/How Often: 1-2 cigar/ day Length of Time of Smoking/Using Tobacco: 9+ YEARS Have You Smoked in the Last Year: Yes Review of Systems Negative: Fever Positive: Abdominal Pain Positive: flank pain, hematuria All Other Systems Reviewed And Are Negative: Yes Physical Exam - Summary Physical Exam Summary: Constitutional: Well-developed, Well-nourished, Alert. (-) Distressed Skin: Warm, Dry HENT: Normocephalic; Atraumatic Eyes: Conjunctiva normal Neck: Musculoskeletal ROM normal neck. (-) JVD, (-) Stridor, (-) Tracheal deviation Cardio: Rhythm regular, rate normal, Heart sounds normal; Intact distal pulses; The pedal pulses are 2+ and symmetric. Radial pulses are 2+ and symmetric. (-) Murmur Pulmonary/Chest wall: Effort normal. (-) Respiratory distress, (-) Wheezes, (-) Rales Abd: Soft, LLQ tenderness, (-) Distension, (-) Guarding, (-) Rebound Musculoskeletal: (-) Edema Lymph: (-) Cervical adenopathy Neuro: Alert, Oriented x3 Psych: Mood and affect Normal - Physical Exam Triage Information Reviewed: Yes Vital Signs On Initial Exam: Temp Pulse Resp BP Pulse Ox 97.7 F 82 16 121/83 100 06/12/19 10:05 06/12/19 10:05 06/12/19 10:05 06/12/19 10:05 06/12/19 10:05 Vital Signs Reviewed: Yes Procedures - Sedation Patient Received Moderate/Deep Sedation with Procedure: No Diagnostics - Vital Signs Vital Signs Temp Pulse Resp BP Pulse Ox 06/12/19 10:05 97.7 F 82 16 121/83 100 - Laboratory Lab Statement: Any lab studies that have been ordered have been reviewed, and results considered in the medical decision making process. - Ultrasound No standard instances Ultrasound Interpretation Completed By: Radiologist Summary of Ultrasound Findings: Transvaginal US: Viable-appearing single intrauterine gestation with appropriate interval growth. No evidence of ectopic . 1.8 cm probable corpus luteum cyst right ovary. ED Provider has reviewed this report. Course/Dx - Course Course Of Treatment: This patient is a 33 year old female presenting to [facility] with a chief complaint of left flank/LLQ pain in since 3 days ago. Transvaginal US reveals Viable-appearing single intrauterine gestation with appropriate interval growth. No evidence of ectopic . 1.8 cm probable corpus luteum cyst right ovary. Labs were unremarkable except for [place] [address]. Patient was administered Zofran. Plan for discharge was discussed with the patient and she was agreeable with this plan. - Diagnoses Provider Diagnoses: Abdominal pain, Discharge ED - Sign-Out/Discharge Documenting (check all that apply): Patient Departure - Discharge - Discharge Plan Condition: Stable Disposition: HOME Patient Education Materials: Acute Abdominal Pain (ED), (ED) Referrals: Tacos Souza MD [Medical Doctor] - 2 Days Additional Instructions: Follow up with Dr. Souza. Return to ED with new or worsening symptoms. - Attestation Statements Document Initiated by Scribe: Yes Documenting Scribe: Jh Love Provider For Whom Scribe is Documenting (Include Credential): Moshe Tran DO Scribe Attestation: Jh Molina, scribed for Moshe Tran DO on 06/12/19 at 1159. Status of Scribe Document: Ready
[2019-06-12] MEDS: NS 0.9% 1000 ML** 1,000 ML IV ONE (10:27)
[2019-06-12 10:34] LABS: ABS Lymphocytes 2.3 10^3/ul (1.0-4.8); ABS Monocytes 0.6 10^3/ul (0-0.8); ABS Neutrophils 5.4 10^3/ul (1.5-7.7); Eosinophil % 0.5 %; Hematocrit 36 % (35-47); Hemoglobin 12.8 g/dL (12.0-16.0); Lymphocyte % 27.7 %; Mean Corpuscular HGB Conc 35 g/dL (31-36); Mean Corpuscular Hemoglobin 31 pg (27-31); Mean Corpuscular Volume 89 fL (80-97); Mean Platelet Volume 8.6 fL (7.4-10.4); Platelet Count 232 10^3/uL (150-450); Red Blood Count 4.09 10^6 /uL (3.70-4.87); Red Cell Distribution Width 13 % (10-15); White Blood Count 8.3 10^3/uL (3.5-10.8)
[2019-06-12 10:50] LABS: Albumin 3.8 g/dL (3.2-5.2); Albumin/Globulin Ratio 1.2 (1-3); BUN/Creatinine Ratio 10.3 (8-20); Calcium 9.2 mg/dL (8.6-10.3); EGFR African American 122.1 (>60); EGFR Non-African American 100.9 (>60); Globulin 3.3 g/dL (2-4); Potassium 4.2 mmol/L (3.5-5.0); Total Bilirubin 0.4 mg/dL (0.2-1.0); Total Protein 7.1 g/dL (6.4-8.9)
[2019-06-12 11:32] LABS: Urine Appearance Cloudy; Urine Bilirubin Negative (Negative); Urine Blood Negative (Negative); Urine Color Yellow; Urine Glucose Negative (Negative); Urine Ketones Negative (Negative); Urine Nitrite Negative (Negative); Urine Protein Negative (Negative); Urine Specific Gravity 1.017 (1.010-1.030); Urine Urobilinogen Negative (Negative)
[2019-06-12] MEDS: Ondansetron INJ* 2 MG/ML VIAL IV ONE (11:51)
[2019-06-12 12:59] VITALS: BP 111/71
== END 2019-06-12 13:00 | disposition home or self-care (01) ==
LOC: ED 10:02
DX: O26.891 Other specified pregnancy related conditions, first trimester (principal); R10.9 Unspecified abdominal pain; Z3A.01 Less than 8 weeks gestation of pregnancy; Z87.891 Personal history of nicotine dependence; Z88.0 Allergy status to penicillin
CPT/HCPCS: 36415; 76817; 80053; 81003; 84702; 85025; 96361; 96374; 99283; J2405

== ENCOUNTER 2019-07-08 09:58 | Emergency (ER) | payer OTHER ==
[2019-07-08 10:09] VITALS: BP 142/79
[2019-07-08 10:30] LABS: Influenza A Molecular NEGATIVE (Negative); Influenza B Molecular NEGATIVE (Negative)
--- NOTE | 2019-07-08 10:58 | UC ---
- HPI Summary HPI Summary: The patient is a 33-year-old female who is approximately 10 weeks . She has had to ultrasound already this both which show a single intrauterine which age-appropriate growth. She presents here with a 2 day history of severe fatigue. She states she can barely keep her eyes open. She denies any fever or chills. She states she has had multiple episodes of vomiting the past 2 days. She denies any UTI symptoms. This is her fifth . She had one ectopic . She has had 2 miscarriages. She has carried one to term. This is a new father. She denies any abdominal pain, pelvic pain, or cramping. She has had no cough headache or myalgias. - History of Current Complaint Chief Complaint: UCGeneralIllness Stated Complaint: FATIGUE NAUSEA FEVER COUGH VOMITING Time Seen by Provider: 07/08/19 10:38 Hx Obtained From: Patient Chief Complaint: Other: - N/V Onset/Duration: Started Days Ago Timing: Constant Severity: Mild Current Severity: Moderate Pain Intensity: 2 Character: None Aggravating Factors: Nothing Alleviating Factors: Nothing Associated Signs and Symptoms: Positive: Nausea, Vomiting - Assessment Hx Now: Yes SAB: 2 IEA: 3 Hx Hysterectomy: No - Additional Pertinent History Maternal Blood Type and Rh: A Positive - Allergies/Home Medications Allergies/Adverse Reactions: Allergies Allergy/AdvReac Type Severity Reaction Status Date / Time Penicillins Allergy Severe Anaphylatic Verified 07/08/19 10:09 Shock PMH/Surg Hx/FS Hx/Imm Hx Previously Healthy: Yes Other History Of: Negative For: Anticoagulant Therapy - Surgical History Surgical History: Yes Surgery Procedure, Year, and Place: Ectopic 11/2010 - Family History Known Family History: Positive: Other - Migraines Negative: Respiratory Disease - Social History Alcohol Use: None Substance Use Type: Marijuana Substance Use Comment - Amount & Last Used: OCCASIONALLY Smoking Status (MU): Former Smoker Type: Cigarettes Amount Used/How Often: 1-2 cigar/ day Length of Time of Smoking/Using Tobacco: 9+ YEARS Have You Smoked in the Last Year: Yes Household Exposure Type: Cigarettes - Immunization History Most Recent Influenza Vaccination: 2017 Most Recent Tetanus Shot: unknown Most Recent Pneumonia Vaccination: none...n/a Review of Systems All Other Systems Reviewed And Are Negative: Yes Constitutional: Positive: Fatigue Skin: Positive: Negative Eyes: Positive: Negative ENT: Positive: Negative Respiratory: Positive: Negative Cardiovascular: Positive: Negative Gastrointestinal: Positive: Vomiting, Nausea Genitourinary: Positive: Negative Motor: Positive: Negative Neurovascular: Positive: Negative Musculoskeletal: Positive: Negative Neurological: Positive: Negative Psychological: Positive: Negative Physical Exam - Physical Exam Triage Information Reviewed: Yes Vital Signs Reviewed: Yes Appearance: Positive: Well-Appearing, No Pain Distress, Well-Nourished Skin: Positive: Warm Head/Face: Positive: Normal Head/Face Inspection Eyes: Positive: EOMI, FABI, Conjunctiva Clear ENT: Positive: Hearing grossly normal, TMs normal, Tonsillar swelling - states this is chronic, Uvula midline. Negative: Nasal congestion, Nasal drainage, Tonsillar exudate, Trismus, Muffled voice, Hoarse voice Neck: Positive: Supple, Nontender, No Lymphadenopathy Respiratory/Lung Sounds: Positive: Clear to Auscultation Cardiovascular: Positive: RRR. Negative: Murmur Abdomen Description: Positive: Nontender, No Organomegaly, Soft. Negative: CVA Tenderness (R), CVA Tenderness (L) Bowel Sounds: Positive: Present Musculoskeletal: Positive: Normal Neurological: Positive: Normal Psychiatric: Positive: Normal Diagnostics - Vital Signs Vital Signs Temp Pulse Resp BP Pulse Ox 07/08/19 10:05 97 F 89 17 142/79 100 - Laboratory Lab Results: Lab Results 07/08/19 Range/Units 10:18 Influenza A (Rapid) Negative (Negative) Influenza B (Rapid) Negative (Negative) UA ++ leuks/- ketones Lab Statement: Any lab studies that have been ordered have been reviewed, and results considered in the medical decision making process. - Diagnoses Provider Diagnoses: Fatigue during , Vomiting Discharge ED - Sign-Out/Discharge Documenting (check all that apply): Patient Departure All imaging exams completed and their final reports reviewed: No Studies - Discharge Plan Condition: Stable Disposition: HOME Patient Education Materials: Fatigue (ED), Nausea and Vomiting in (ED ) Forms: *Work Release Additional Instructions: Call your OB for advice re vomiting and to schedule follow up I am not sure if you symptoms are related or due to a viral illness blood work is pending rest clear liquids a urine culture is pending - Billing Disposition and Condition Condition: STABLE Disposition: Home
[2019-07-08 16:28] LABS: ABS Lymphocytes 2.2 10^3/ul (1.0-4.8); ABS Monocytes 0.7 10^3/ul (0-0.8); ABS Neutrophils 6.8 10^3/ul (1.5-7.7); Eosinophil % 0.5 %; Hematocrit 36 % (35-47); Hemoglobin 12.7 g/dL (12.0-16.0); Lymphocyte % 22.7 %; Mean Corpuscular HGB Conc 35 g/dL (31-36); Mean Corpuscular Hemoglobin 32 pg (27-31); Mean Corpuscular Volume 90 fL (80-97); Mean Platelet Volume 9.1 fL (7.4-10.4); Platelet Count 249 10^3/uL (150-450); Red Blood Count 4.03 10^6 /uL (3.70-4.87); Red Cell Distribution Width 13 % (10-15); White Blood Count 9.8 10^3/uL (3.5-10.8)
== END 2019-07-08 11:45 | disposition home or self-care (01) ==
LOC: UCEAST 09:58
DX: O21.8 Other vomiting complicating pregnancy (principal); O26.811 Pregnancy related exhaustion and fatigue, first trimester; Z3A.10 10 weeks gestation of pregnancy; Z88.0 Allergy status to penicillin; Z87.891 Personal history of nicotine dependence
CPT/HCPCS: 36415; 81003; 85025; 86308; 87086; 99211; G0463

== ENCOUNTER 2019-08-25 16:07 | Emergency (ER) | payer OTHER ==
--- NOTE | 2019-08-25 16:46 | ED ---
Influenza-Like Illness - HPI Summary HPI Summary: 33 year old female at 17 weeks presents with cough since yesterday. She admits to muscle aches. no known fever. she admits to nausea and vomiting. She has a headache. She has not taken anything for her symptoms. she states went to [facility] on either 20 or 14 of last month. she states cough is productive cough. she states boyfriend was sick but has recorded. She denies any known sick contacts with covid-19. she has not traveled out of the country or had contact with anyone from [place], [place], [place], or [place]. she has no medical conditions. she is not a smoker. - History of Current Complaint Chief Complaint: EDFluSymptoms Time Seen by Provider: 08/25/19 16:37 - Allergy/Home Medications Allergies/Adverse Reactions: Allergies Allergy/AdvReac Type Severity Reaction Status Date / Time Penicillins Allergy Severe Anaphylatic Verified 07/08/19 10:09 Shock Home Medications: Home Medications Pnv No.95/Ferrous Fum/Folic AC [ Tablet] 1 each PO DAILY 06/12/19 [ History Confirmed 07/08/19] Metoclopramide TAB* [Reglan TAB*] 10 mg PO Q6H PRN #12 tab 08/25/19 [Rx] PMH/Surg Hx/FS Hx/Imm Hx Endocrine/Hematology History: Denies: Hx Anticoagulant Therapy, Hx Diabetes, Hx Thyroid Disease Cardiovascular History: Denies: Hx Hypertension Respiratory History: Denies: Hx Asthma, Hx Chronic Obstructive Pulmonary Disease (COPD) GI History: Denies: Hx Ulcer Neurological History: Reports: Hx Migraine - Suspected Psychiatric History: Denies: Hx Substance Abuse - Cancer History Cancer Type, Location and Year: hx of etopic - Surgical History Surgery Procedure, Year, and Place: Ectopic 11/2010 - Immunization History Date of Tetanus Vaccine: Unknown Infectious Disease History: No Infectious Disease History: Denies: Hx Clostridium Difficile, Hx Hepatitis, Hx Human Immunodeficiency Virus (HIV), Hx of Known/Suspected MRSA, Hx Shingles, Hx Tuberculosis, Hx Known/ Suspected VRE, Hx Known/Suspected VRSA, History Other Infectious Disease, Traveled Outside the [place] in Last 30 Days - Family History Known Family History: Positive: Other - Migraines Negative: Respiratory Disease - Social History Alcohol Use: None Substance Use Type: Reports: Marijuana Substance Use Comment - Amount & Last Used: OCCASIONALLY Hx Tobacco Use: Yes Smoking Status (MU): Former Smoker Type: Cigarettes Amount Used/How Often: 1-2 cigar/ day Length of Time of Smoking/Using Tobacco: 9+ YEARS Have You Smoked in the Last Year: Yes Review of Systems Positive: Fatigue. Negative: Fever Positive: Nasal Discharge Negative: Chest Pain Positive: Cough. Negative: Shortness Of Breath Positive: Vomiting, Nausea All Other Systems Reviewed And Are Negative: Yes Physical Exam Triage Information Reviewed: Yes Vital Signs On Initial Exam: Initial Vitals Temp Pulse Resp BP Pulse Ox 99.7 F 115 18 128/89 99 08/25/19 16:07 08/25/19 16:07 08/25/19 16:07 08/25/19 16:07 08/25/19 16:07 Vital Signs Reviewed: Yes Appearance: Positive: Well-Appearing Skin: Positive: Warm, Dry Head/Face: Positive: Normal Head/Face Inspection Eyes: Positive: Normal, EOMI, FABI, Conjunctiva Clear ENT: Positive: Pharynx normal, TMs normal Neck: Positive: Supple, Nontender, No Lymphadenopathy Respiratory/Lung Sounds: Positive: Clear to Auscultation, Breath Sounds Present Cardiovascular: Positive: Normal, RRR Abdomen Description: Positive: Nontender, Soft Bowel Sounds: Positive: Present Musculoskeletal: Positive: Normal Neurological: Positive: Normal Psychiatric: Positive: Normal Procedures - Sedation Patient Received Moderate/Deep Sedation with Procedure: No Diagnostics - Vital Signs Vital Signs Temp Pulse Resp BP Pulse Ox 08/25/19 16:07 99.7 F 115 18 128/89 99 - Laboratory Lab Statement: Any lab studies that have been ordered have been reviewed, and results considered in the medical decision making process. Flu Symptom Course/Dx - Course Course Of Treatment: 33 year old female at 17 weeks presents with cough since yesterday. She admits to muscle aches. no known fever. she admits to nausea and vomiting. She has a headache. She has not taken anything for her symptoms. she states went to [facility] on either 20 or 14 of last month. she states cough is productive cough. she states boyfriend was sick but has recorded. She denies any known sick contacts with covid-19. she has not traveled out of the country or had contact with anyone from [place], [place], [place] , or [place]. she has no medical conditions. she is not a smoker. on exam pharynx normal. lungs CTA. does not currently have a fever. does not meet criteria for test for covid. flu is neg. discussed likely viral. will treat supporatively. patient understand and agrees with plan. - Diagnoses Differential Diagnosis/HQI/PQRI: Positive: Bronchitis, Influenza, Pneumonia Provider Diagnoses: Viral syndrome Discharge ED - Sign-Out/Discharge Documenting (check all that apply): Patient Departure - Discharge Plan Condition: Good Disposition: HOME Prescriptions: Metoclopramide TAB* [Reglan TAB*] 10 mg PO Q6H PRN #12 tab PRN Reason: Nausea Patient Education Materials: Viral Syndrome (ED) Forms: *Work Release Referrals: Danielito Kendrick DO [Primary Care Provider] - Additional Instructions: Take Tylenol for muscle aches and fever every 6 hours Saline rinse can be used multiple times a day for nasal congestion take benadryl every 6 hours for nasal congestion take reglan every 6 hours for nausea Drink plenty of fluids Follow up with primary within 5 days Return to ED if develop any new or worsening symptoms - Billing Disposition and Condition Condition: GOOD Disposition: Home - Attestation Statements Provider Attestation: I was available for consultation for this patient. I did not evaluate the patient or participate in any medical decision making or disposition decisions unless I am specifically named in the chart as having consulted on the patient. If I have consulted on the patient, please see my own ED note on the patient encounter. Wade Ricks MD
[2019-08-25] MEDS ORDERED: Acetaminophen TAB* 325 MG PO ONE (16:51)
[2019-08-25] MEDS ORDERED: Metoclopramide TAB* 10 MG PO ONE (16:51)
[2019-08-25 17:24] LABS: Influenza A Molecular Negative (Negative); Influenza B Molecular Negative (Negative)
[2019-08-25 18:07] VITALS: BP 126/76
== END 2019-08-25 18:06 | disposition home or self-care (01) ==
LOC: ED 16:07
DX: O26.892 Other specified pregnancy related conditions, second trimester (principal); B34.9 Viral infection, unspecified; Z3A.17 17 weeks gestation of pregnancy; Z88.0 Allergy status to penicillin; Z87.891 Personal history of nicotine dependence
CPT/HCPCS: 99282; A9270-GY

== ENCOUNTER 2020-01-25 18:39 | Inpatient (IN) ==
[2020-01-25 19:56] LABS: ABS Basophils 0.1 10^3/ul (0-0.2); ABS Eosinophils 0.1 10^3/ul (0-0.6); ABS Lymphocytes 2.9 10^3/ul (1.0-4.8); ABS Monocytes 0.8 10^3/ul (0-0.8); ABS Neutrophils 9.7 10^3/ul (1.5-7.7); Eosinophil % 0.5 %; Hematocrit 32 % (35-47); Hemoglobin 11.6 g/dL (12.0-16.0); Lymphocyte % 21.4 %; Mean Corpuscular HGB Conc 37 g/dL (31-36); Mean Corpuscular Hemoglobin 32 pg (27-31); Mean Corpuscular Volume 88 fL (80-97); Mean Platelet Volume 10.4 fL (7.4-10.4); Nucleated Red Blood Cells % 0.1; Platelet Count 213 10^3/uL (150-450); Red Blood Count 3.59 10^6 /uL (3.70-4.87); Red Cell Distribution Width 13 % (10-15); White Blood Count 13.5 10^3/uL (3.5-10.8)
[2020-01-25 20:14] LABS: Albumin 3.3 g/dL (3.2-5.2); Albumin/Globulin Ratio 0.9 (1-3); BUN/Creatinine Ratio 20.8 (8-20); Calcium 9.1 mg/dL (8.6-10.3); EGFR African American 113.6 (>60); EGFR Non-African American 93.9 (>60); Globulin 3.6 g/dL (2-4); Potassium 3.9 mmol/L (3.5-5.0); Total Bilirubin 0.2 mg/dL (0.2-1.0); Total Protein 6.9 g/dL (6.4-8.9); Uric Acid 7.2 mg/dL (2.3-6.6)
[2020-01-25 20:34] LABS: Urine Appearance Cloudy; Urine Bilirubin Negative (Negative); Urine Blood Negative (Negative); Urine Color Yellow; Urine Glucose Negative (Negative); Urine Ketones Negative (Negative); Urine Nitrite Negative (Negative); Urine Protein 1+(30 mg/dL) (Negative); Urine Specific Gravity 1.028 (1.010-1.030); Urine Urobilinogen Negative (Negative)
[2020-01-25 20:37] LABS: Urine Bacteria Absent (Absent); Urine Red Blood Cell Trace(0-2/hpf) (Absent); Urine Squamous Epithelial Cell Present (Absent); Urine White Blood Cell Trace(0-5/hpf) (Absent)
[2020-01-26] MEDS ORDERED: Lactated Ringers 1000 ml BAG 1,000 ML IV ONE (01:33)
[2020-01-26] MEDS ORDERED: Lactated Ringers 1000 ml BAG 1,000 ML IV SCH ×2 (02:00→10:00)
[2020-01-26] MEDS ORDERED: Morphine 10 MG/ML VIAL (1 ml) IV ONE (02:39)
[2020-01-26] MEDS ORDERED: Promethazine INJ(RESTRICTED) 25 MG/ML 1 ml VIAL IV PRN (02:40)
[2020-01-26] MEDS ORDERED: OBEPIDURAL 0 ML EPIDURAL ONE (04:07)
[2020-01-26 04:08] LABS: ABS Basophils 0.1 10^3/ul (0-0.2); ABS Eosinophils 0.2 10^3/ul (0-0.6); ABS Lymphocytes 4.2 10^3/ul (1.0-4.8); ABS Monocytes 1.4 10^3/ul (0-0.8); ABS Neutrophils 7.7 10^3/ul (1.5-7.7); Eosinophil % 1.1 %; Hematocrit 36 % (35-47); Hemoglobin 12.8 g/dL (12.0-16.0); Lymphocyte % 31.3 %; Mean Corpuscular HGB Conc 36 g/dL (31-36); Mean Corpuscular Hemoglobin 31 pg (27-31); Mean Corpuscular Volume 88 fL (80-97); Platelet Count 224 10^3/uL (150-450); Red Blood Count 4.07 10^6 /uL (3.70-4.87); Red Cell Distribution Width 13 % (10-15); White Blood Count 13.6 10^3/uL (3.5-10.8)
[2020-01-26] MEDS ORDERED: Oxytocin in LR 20 UNITS/1,000 ML BAG IVPB ONE (04:19)
[2020-01-26] MEDS ORDERED: Ammonia Inhalant 1 EA AMP ONE (05:30)
[2020-01-26] MEDS ORDERED: Witch Hazel PAD JAR ONE (05:31)
[2020-01-26] MEDS ORDERED: Dibucaine 1% OINT 28.35 GM TUBE ONE (05:31)
[2020-01-26] MEDS ORDERED: Lidocaine 1% VIAL 10 MG/ML VIAL ONE (06:03)
[2020-01-26] MEDS ORDERED: Glycerin ADULT 2.4 gm SUPP PR PRN (09:06)
[2020-01-26] MEDS ORDERED: Dibucaine 1% OINT 28.35 GM TUBE PR PRN (09:06)
[2020-01-26] MEDS ORDERED: Witch Hazel PAD JAR TOPICAL PRN (09:06)
[2020-01-27 06:27] LABS: ABS Eosinophils 0.2 10^3/ul (0-0.6); ABS Lymphocytes 3.4 10^3/ul (1.0-4.8); ABS Monocytes 0.8 10^3/ul (0-0.8); ABS Neutrophils 7.1 10^3/ul (1.5-7.7); Eosinophil % 1.4 %; Hematocrit 31 % (35-47); Hemoglobin 11.2 g/dL (12.0-16.0); Lymphocyte % 29.6 %; Mean Corpuscular HGB Conc 37 g/dL (31-36); Mean Corpuscular Hemoglobin 32 pg (27-31); Mean Corpuscular Volume 88 fL (80-97); Mean Platelet Volume 9.8 fL (7.4-10.4); Nucleated Red Blood Cells % 0.1; Platelet Count 174 10^3/uL (150-450); Red Blood Count 3.46 10^6 /uL (3.70-4.87); Red Cell Distribution Width 13 % (10-15); White Blood Count 11.6 10^3/uL (3.5-10.8)
[2020-01-27 09:52] VITALS: BP 128/70
== END 2020-01-27 13:20 | disposition home or self-care (01) | DRG 560 ==
LOC: MCHOBOUT 18:39 → MCHOB 01-26 00:55
PROVIDERS: ADMIT Obstetrics & Gynecology; ATTEND Obstetrics & Gynecology

== ENCOUNTER 2021-12-13 08:52 | Inpatient (IN) ==
[~2021-12-13 08:52] MED LIST: Buffered Lidocaine 1% SYRIN 1 ml INTRADERM ONE; HYDROcodone/ACETAMIN 5/325 mg TAB PO PRN; Lactated Ringers 1000 ml BAG 1,000 ML IV SCH; Metoclopramide 5 MG/ML VIAL (10 mg) IV PRN; Naloxone 0.4 mg VIAL 0.4 mg/ml 1 ml VIAL IV PRN; Ondansetron 4 mg VIAL 2 MG/ML 2 ml VIAL IV PRN; Scopolamine 1 mg/72hr PATCH TRANSDERM ONE
[2021-12-13] MEDS ORDERED: Scopolamine 1 mg/72hr PATCH ONE (09:10)
[2021-12-13] MEDS ORDERED: Heparin 5000 UNITS/ML 1 mL VIAL ONE (09:10)
[2021-12-13] MEDS ORDERED: Clindamycin 900 MG/D5W BAG 900 MG/50 ML BAG IVPB ONE (09:11)
[2021-12-13] MEDS ORDERED: Lidocaine 2% PF 5 ML VIAL ONE (09:23)
[2021-12-13] MEDS ORDERED: Propofol 10 MG/ML 20 ML BTL ONE (09:23)
[2021-12-13] MEDS ORDERED: Midazolam 2 mg/2 ml VIAL 1 mg/ml 2 ml VIAL (2 mg) ONE (09:24)
[2021-12-13] MEDS ORDERED: fentaNYL 100 mcg/2 ml 50 MCG/ML VIAL ONE ×3 (09:24→16:13)
[2021-12-13] MEDS ORDERED: Rocuronium 50 mg VIAL 10 mg/ml 5 ml VIAL (50 mg) ONE ×2 (09:24→14:03)
[2021-12-13] MEDS ORDERED: Bupivacaine 0.25% w/EPI 10 ML SDV ONE ×2 (10:47→13:04)
[2021-12-13] MEDS ORDERED: Ondansetron 4 mg VIAL 2 MG/ML 2 ml VIAL ONE ×2 (13:43→15:45)
[2021-12-13] MEDS ORDERED: HYDROmorphone 0.5 MG/0.5 ML SYRINGE ONE (13:43)
[2021-12-13] MEDS ORDERED: Dexamethasone IV 4 MG/ML VIAL 1 ml VIAL ONE (13:43)
[2021-12-13] MEDS ORDERED: Phenylephrine IV 10 MG/ML 1 ml VIAL ONE (13:51)
[2021-12-13] MEDS ORDERED: Sugammadex 500 MG/5 ML 5 ml VIAL IV PUSH ONE (14:28)
[2021-12-13] MEDS ORDERED: HYDROcodone/ACET. 7.5/325 LIQ 15 ML UDC PO PRN (14:55)
[2021-12-13] MEDS ORDERED: Metoclopramide 5 MG/ML VIAL (10 mg) ONE (15:15)
[2021-12-13] MEDS: fentaNYL 100 mcg/2 ml 50 MCG/ML VIAL IV PRN ×6 (15:22→16:44)
[2021-12-13] MEDS: Lactated Ringers 1000 ml BAG 1,000 ML IV SCH (18:02)
[2021-12-13] MEDS: Ondansetron 4 mg VIAL 2 MG/ML 2 ml VIAL IV PRN (20:44)
[2021-12-13] MEDS: HYDROmorphone 0.5 MG/0.5 ML SYRINGE IV SLOW PU PRN (20:49)
[2021-12-13] MEDS: Heparin 5000 UNITS/ML 1 mL VIAL SUBCUT SCH (22:59)
[2021-12-14] MEDS: Lactated Ringers 1000 ml BAG 1,000 ML IV SCH ×2 (02:41→14:02)
[2021-12-14] MEDS: Ondansetron 4 mg VIAL 2 MG/ML 2 ml VIAL IV PRN (04:40)
[2021-12-14] MEDS: HYDROmorphone 0.5 MG/0.5 ML SYRINGE IV SLOW PU PRN ×2 (04:45→07:58)
[2021-12-14] MEDS: Heparin 5000 UNITS/ML 1 mL VIAL SUBCUT SCH ×2 (06:18→14:03)
[2021-12-14 11:21] VITALS: BP 124/63
[2021-12-14] MEDS ORDERED: HYDROcodone/ACET. 7.5/325 LIQ 15 ML UDC PO PRN (14:42)
[2021-12-14] MEDS ORDERED: D5W 1/2 NS KCl 20 meq 1000 ml 1,000 ML IV SCH (15:00)
== END 2021-12-14 16:40 | disposition home or self-care (01) | DRG 403 ==
LOC: AA 08:52 → SSU 17:31
PROVIDERS: ADMIT Surgery; ATTEND Surgery